=== PATIENT | male | born 1995 | race Caucasian/White ===

== ENCOUNTER 2016-10-03 07:45 | Emergency (ER) | payer OTHER, BC ==
[~2016-10-03] VITALS: Ht 170.2 cm; Wt 80.0 kg
[2016-10-03 07:52] VITALS: BP 148/90; PULSE 75; TEMP 37.2; O2SAT 99; Ht 170.2 cm; Wt 80.0 kg
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
== END 2016-10-03 08:16 | disposition home or self-care (01) ==
LOC: EDBD 07:45 → C.EDB 07:46
DX: T14.8 Other injury of unspecified body region (principal); V43.51XA Car driver injured in collision with sport utility vehicle in traffic accident, initial encounter; Y92.410 Unspecified street and highway as the place of occurrence of the external cause; E16.2 Hypoglycemia, unspecified; F17.210 Nicotine dependence, cigarettes, uncomplicated